=== PATIENT | male | born 1970 | race Caucasian/White ===

== ENCOUNTER → 2018-06-30 09:22 | Outpatient (CLI) | payer SELFPAY ==
--- NOTE | 2018-06-30 09:31 | CT_ITS ---
STUDY: CT SOFT TISSUE NECK WITH CONTRAST REASON FOR EXAM: Male, 48 years old. Sinus congestion and drainage. RADIATION DOSAGE (If Supplied By Facility): CTDIvol = ( 18.93 ) mGy, DLP = ( 539 ) mGycm TECHNIQUE: The patient was scanned in a multi-detector CT scanner. High resolution transaxial imaging was performed following intravenous administration of 75cc ml of Isovue 300 contrast material. Sagittal and coronal images were reconstructed. Individualized dose optimization techniques were used for this CT. COMPARISON: None. FINDINGS: The visualized intracranial structures are within normal limits. The visualized paranasal sinuses are clear. Please note that the frontal sinuses are not fully visualized on this exam. The mastoid air cells are well aerated. There is no cervical lymphadenopathy. There is no soft tissue mass or fluid collection identified. The lung apices are clear. There is a lipoma noted adjacent to the left sternocleidomastoid muscle. There are no destructive osseous lesions. CT/Soft Tissue Neck WITH Contrast IMPRESSION: Visualized paranasal sinuses are clear. Please note that the frontal sinus is not fully visualized on this exam. No acute pathology. Electronically Signed: Ori Parisi, at 21:25 EST Tel , Service support ,
== END ==
PROVIDERS: Family Provider Family Medicine; PCP Family Medicine; Visit Provider Otolaryngology
DX: R22.1 Localized swelling, mass and lump, neck (principal)
CPT/HCPCS: 70491; Q9967

== ENCOUNTER → 2019-02-25 | Outpatient (CLI) | payer OTHER, SELFPAY ==
--- NOTE | 2019-02-25 09:35 | EKG12_ITS ---
Test Reason : PRE-OP Blood Pressure : / mmHG Vent. Rate : 077 BPM Atrial Rate : 077 BPM P-R Int : 146 ms QRS Dur : 094 ms QT Int : 358 ms P-R-T Axes : 048 -18 005 degrees QTc Int : 405 ms Normal sinus rhythm Possible Inferior infarct , age undetermined Abnormal ECG Confirmed by BROCK CESPEDES ([id number]), sound editor HUMBERTO CLARK ([id number]) on 02/26/2019 1:39:20 PM Referred By: Inocente Funez Confirmed By:BROCK CESPEDES
[2019-02-25 11:26] LABS: Hematocrit 42.1 % (40-54); Hemoglobin 14.6 g/dl (13.0-16.5); Mean Corp Hgb Conc 34.7 g/gl (32-36); Mean Corpuscular Hgb 29.2 pg (27.0-32.0); Mean Corpuscular Volume 84.2 fL (80-94); Platelet Count 189 K/mm3 (150-450); RBC Distribution Width CV 12.2 % (11.6-14.6); RBC Distribution Width SD 36.6 fl (35.1-43.9); White Blood Count 4.4 K/mm3 (4.4-11.0)
[2019-02-25 11:29] LABS: Scan Indicated on CBC? Y/N NO
[2019-02-25 12:01] LABS: Anion Gap 7 (5-15); BUN 13 mg/dL (7-18); BUN/Creat Ratio 15.3 RATIO (10-20); Calcium,Total 8.7 mg/dL (8.5-10.1); Chloride 106 mmol/L (98-107); Creatinine, Serum 0.85 mg/dL (0.70-1.30); EST Glomerular Filtration Rate 101 mL/min (>60); Est Glom Filt Rate - Afr Amer 122 mL/min (>60); Glucose 104 mg/dL (74-106); Sodium Level 140 mmol/L (136-145)
== END | disposition home or self-care (01) ==
PROVIDERS: Family Provider Family Medicine; PCP Family Medicine; Referring Provider Otolaryngology; Visit Provider Otolaryngology
DX: Z01.818 Encounter for other preprocedural examination (principal)
CPT/HCPCS: 36415; 80048; 85027; 93005